=== PATIENT | female | born 1960 | race Caucasian/White ===

== ENCOUNTER 2016-09-11 18:03 | Emergency (ER) | payer SELFPAY ==
[~2016-09-11] VITALS: Ht 160 cm; Wt 70.0 kg
[2016-09-11 18:05] VITALS: BP 140/72; PULSE 82; RESP 20; TEMP 98.3; O2SAT 98
[2016-09-11 18:55] LABS: AUTOMATED NEUTROPHIL # 9.8 TH/MM3 (1.8-7.7); BASOPHIL # 0.1 TH/MM3 (0-0.2); BASOPHIL % 0.5 % (0.0-2.0); EOSINOPHIL # 0.2 TH/MM3 (0-0.4); EOSINOPHIL % 1.6 % (0.0-4.0); HEMATOCRIT 43.4 % (35.0-46.0); HEMO FLAGS DIFF FINAL; LYMPHOCYTE # 3.7 TH/MM3 (1.0-4.8); MEAN CORPUSCULAR HEMOGLOBIN 29.6 PG (27.0-34.0); MEAN CORPUSCULAR HGB CONC 33.7 % (32.0-36.0); MONO % 6.5 % (0.0-8.0); NEUT % 66.4 % (16.0-70.0); PLATELET COUNT 217 TH/MM3 (150-450); RED BLOOD COUNT 4.93 MIL/MM3 (4.00-5.30); RED CELL DISTRIBUTION WIDTH 13.1 % (11.6-17.2); WHITE BLOOD COUNT 14.8 TH/MM3 (4.0-11.0)
[2016-09-11 19:09] LABS: BACTERIA, URINE RARE /hpf; BLOOD, URINE TRACE (NEG); GLUCOSE,URINE NEG (NEG); KETONE, URINE NEG (NEG); NITRITE,URINE NEG (NEG); PH, URINE 6.5 (5.0-8.5); SQUAMOUS EPITHELIAL CELL URINE 3 /hpf (0-5); URINE COLOR YELLOW (YELLW/STRAW)
[2016-09-11 19:10] LABS: COMMENT (UR) CULT NOT INDICATED; CULTURE IF INDICATED CULT NOT INDICATED
[2016-09-11 19:14] LABS: ANION GAP 9 MEQ/L (5-15); AST (GOT) 19 U/L (15-37); BICARBONATE 26.3 MEQ/L (21.0-32.0); BLOOD UREA NITROGEN 10 MG/DL (7-18); CHLORIDE 105 MEQ/L (98-107); GLOMERULAR FILTRATION RATE 60 ML/MIN (>89); POTASSIUM 3.9 MEQ/L (3.5-5.1); SODIUM (NA) 140 MEQ/L (136-145)
[2016-09-11 19:15] LABS: ALT (GPT) 25 U/L (10-53)
[2016-09-11 19:17] LABS: ALKALINE PHOSPHATASE 84 U/L (45-117); TOTAL BILIRUBIN ADULT 0.6 MG/DL (0.2-1.0)
--- NOTE | 2016-09-11 21:59 | PD ---
HPI Chief Complaint: Abdominal Pain Time Seen by Provider: 21:48 Travel History International Travel<30 days: No Contact w/Intl Traveler<30days: No Traveled to known affect area: No History of Present Illness HPI 56-year-old female here for evaluation of abdominal pain and bloating. Patient reports that the symptoms have been going on for the last week, progressively worsening over the last couple of days. History of bilateral tubal ligation. No other abdominal surgeries. Patient reports that she feels as though her abdomen is about 5 inches distended. She also reports having fevers of 101F at home. She was having some loose bowel movements as well as vomiting when the symptoms first started, however states she no longer has vomiting or diarrhea. She has tried taking Pepto-Bismol at home. Pain is mainly located over the left lower quadrant of her abdomen, described as a burning sensation, radiates to her left flank, moderate in intensity, worse with movement and palpation. She denies vaginal bleeding or discharge. No urinary symptoms. PFSH Social History Tobacco Use: Yes Allergies-Medications (Allergen,Severity, Reaction): Coded Allergies: Penicillin (Verified Allergy, Unknown, 09/11/16) Sulfa (Verified Allergy, Unknown, 09/11/16) Reported Meds & Prescriptions Reported Meds & Active Scripts Active Tramadol (Tramadol HCl) 50 Mg Tab 50 Mg PO Q6H PRN Bentyl (Dicyclomine HCl) 10 Mg Cap 10 Mg PO TID PRN Review of Systems Except as stated in HPI: all other systems reviewed are Neg Physical Exam Narrative GENERAL: Well-developed, well-nourished, no apparent distress. SKIN: Focused skin assessment warm/dry. No rash. HEAD: Atraumatic. Normocephalic. EYES: Pupils equal and round. No scleral icterus. No injection or drainage. ENT: Mucous membranes pink and moist. NECK: Trachea midline. No JVD. CARDIOVASCULAR: Regular rate and rhythm. RESPIRATORY: No accessory muscle use. Clear to auscultation. Breath sounds equal bilaterally. GASTROINTESTINAL: Abdomen soft, nondistended. Mild left mid and left lower quadrant tenderness without peritoneal signs. Normal bowel sounds. No hernias. MUSCULOSKELETAL: No obvious deformities. No clubbing. No cyanosis. No edema. NEUROLOGICAL: Awake and alert. No obvious cranial nerve deficits. Motor grossly within normal limits. Normal speech. PSYCHIATRIC: Appropriate mood and affect; insight and judgment normal. Data Data Last Documented VS Vital Signs Date Time Temp Pulse Resp B/P Pulse Ox O2 Delivery O2 Flow Rate FiO2 09/11/16 18:05 98.3 82 20 140/72 98 Room Air Orders Complete Blood Count With Diff (09/11/16 18:14) Comprehensive Metabolic Panel (09/11/16 18:14) Urinalysis - C+S If Indicated (09/11/16 18:14) Lipase (09/11/16 18:14) Ct Abd/Pel W Iv Contrast(Rout) (09/11/16 21:55) Iohexol 350 Inj (Omnipaque 350 Inj) (09/11/16 22:59) Dicyclomine (Bentyl) (09/11/16 23:30) Ketorolac Inj (Toradol Inj) (09/11/16 23:30) Labs Laboratory Tests Test 09/11/16 09/11/16 16:30 18:35 Urine Color YELLOW Urine Turbidity HAZY Urine pH 6.5 Urine Specific [place] 1.014 Urine Protein NEG mg/dL Urine Glucose (UA) NEG mg/dL Urine Ketones NEG mg/dL Urine Occult Blood TRACE Urine Nitrite NEG Urine Bilirubin NEG Urine Urobilinogen LESS THAN 2.0 MG/DL Urine Leukocyte Esterase MOD Urine RBC 2 /hpf Urine WBC 6 /hpf Urine Squamous Epithelial 3 /hpf Cells Urine Bacteria RARE /hpf Microscopic Urinalysis Comment CULT NOT INDICATED White Blood Count 14.8 TH/MM3 Red Blood Count 4.93 MIL/MM3 Hemoglobin 14.6 GM/DL Hematocrit 43.4 % Mean Corpuscular Volume 88.0 FL Mean Corpuscular Hemoglobin 29.6 PG Mean Corpuscular Hemoglobin 33.7 % Concent Red Cell Distribution Width 13.1 % Platelet Count 217 TH/MM3 Mean Platelet Volume 9.5 FL Neutrophils (%) (Auto) 66.4 % Lymphocytes (%) (Auto) 25.0 % Monocytes (%) (Auto) 6.5 % Eosinophils (%) (Auto) 1.6 % Basophils (%) (Auto) 0.5 % Neutrophils # (Auto) 9.8 TH/MM3 Lymphocytes # (Auto) 3.7 TH/MM3 Monocytes # (Auto) 1.0 TH/MM3 Eosinophils # (Auto) 0.2 TH/MM3 Basophils # (Auto) 0.1 TH/MM3 CBC Comment DIFF FINAL Differential Comment Sodium Level 140 MEQ/L Potassium Level 3.9 MEQ/L Chloride Level 105 MEQ/L Carbon Dioxide Level 26.3 MEQ/L Anion Gap 9 MEQ/L Blood Urea Nitrogen 10 MG/DL Creatinine 0.97 MG/DL Estimat Glomerular Filtration 60 ML/MIN Rate Random Glucose 88 MG/DL Calcium Level 9.4 MG/DL Total Bilirubin 0.6 MG/DL Aspartate Amino Transf 19 U/L (AST/SGOT) Alanine Aminotransferase 25 U/L (ALT/SGPT) Alkaline Phosphatase 84 U/L Total Protein 7.5 GM/DL Albumin 4.2 GM/DL Lipase 184 U/L MDM Medical Decision Making Medical Screen Exam Complete: Yes Emergency Medical Condition: Yes Differential Diagnosis Colitis, diverticulitis, appendicitis, IBS, IBD, UTI, cystitis, nephrolithiasis , ureterolithiasis, pyelonephritis Narrative Course Vital signs are within normal limits. CBC shows WBC 14.8, hemoglobin 14.6, hematocrit 43.4, platelets 217, neutrophils 66.4%. CMP is unremarkable. Lipase is 184. UA shows trace occult blood, moderate facet esterase, negative nitrites, not suggestive of UTI. CT abdomen pelvis: CONCLUSION: 1. Benign-appearing right renal cyst measuring 1.6 cm 2. Benign-appearing right ovarian cyst measuring 1.4 cm. 3. Scattered diverticulosis of the sigmoid colon. 4. No acute pathology. Patient was made aware of all findings and provided a copy of her CT abdomen and pelvis report. On reassessment she is sleeping comfortably. There is mild left-sided tenderness. No peritoneal signs. Patient is stable for discharge home with outpatient follow-up. She was instructed to follow-up with a primary care physician this week. I will also give her the name of the communication equipment mechanic director of hotel operations with whom to follow-up with. I will give her prescription for Bentyl and tramadol for her pain. Patient informed on when to return to the emergency department. She verbalizes understanding and agreement with plan. Diagnosis Primary Impression: Abdominal pain Qualified Code: R10.32 - Left lower quadrant pain Additional Impressions: Diverticulosis Qualified Code: K57.90 - Diverticulosis of intestine without bleeding, unspecified intestinal tract location Ovarian cyst Renal cyst Referrals: Kitty Concepcion MD 3 days Senior Systems Developer Primary Care Physician 3 days Additional Instructions: Follow-up with a primary care physician this week. Follow-up with communication equipment mechanic Dr. Concepcion or communication equipment mechanic of your choice this week. Return to the emergency department for worsening symptoms or any other concerns. Scripts Tramadol 50 Mg Tab50 Mg PO Q6H PRN (PAIN) #15 TAB Ref 0 Prov:Petros Harry MD 09/11/16 Dicyclomine (Bentyl)10 Mg Cap10 Mg PO TID PRN (Bowel Management) #20 CAP Ref 0 Prov:Petros Harry MD 09/11/16 Disposition: 01 DISCHARGE HOME Condition: Stable Petros Harry MD Sep 11, 2016 21:59
[2016-09-11] MEDS ORDERED: IOHEXOL 350 MG/ML 10 ML VIAL (for RAD DIAG) IV ONE (22:59)
--- NOTE | 2016-09-11 23:14 | RADRPT ---
EXAM DATE/TIME: 09/11/2016 22:45 [facility] COMPARISON: No previous studies available for comparison. INDICATIONS : Lower abdominal pain, diarrhea and bloating. IV CONTRAST: 75 cc Omnipaque 350 (iohexol) IV ORAL CONTRAST: No oral contrast ingested. RADIATION DOSE: 9.96 CTDIvol (mGy) MEDICAL HISTORY : None SURGICAL HISTORY : Tubal ligation. ENCOUNTER: Initial ACUITY: 1 week PAIN SCALE: 6/10 LOCATION: Bilateral lower quadrant TECHNIQUE: Volumetric scanning of the abdomen and pelvis was performed. Using automated exposure control and ad justment of the mA and/or kV according to patient size, radiation dose was kept as low as reasonably achievable to obtain optimal diagnostic quality images. DICOM format image data is available electro nically for review and comparison. FINDINGS: LOWER LUNGS: The visualized lower lungs are clear. LIVER: Homogeneous density without lesion. There is no dilation of the biliary tree. No calcified gallston es. SPLEEN: Normal size without lesion. PANCREAS: Within normal limits. KIDNEYS: Normal in size and shape. There is no mass, stone or hydronephrosis. There is a 1.6 cm benign cyst m idpole right kidney. Right-sided extrarenal pelvis. The ureters are nondilated. ADRENAL GLANDS: Within normal limits. VASCULAR: There is no aortic aneurysm. BOWEL/MESENTERY: The stomach, small bowel, and colon demonstrate no acute abnormality. There is no free intraperitone al air or fluid. Scattered diverticulosis of the sigmoid colon without inflammatory changes. No infla mmatory changes in the right lower quadrant. ABDOMINAL WALL: Within normal limits. RETROPERITONEUM: There is no lymphadenopathy. BLADDER: No wall thickening or mass. REPRODUCTIVE: There is a small cyst in the right adnexa measuring 1.4 cm. Otherwise the uterus and left adnexa are unremarkable. INGUINAL: There is no lymphadenopathy or hernia. MUSCULOSKELETAL: Within normal limits for patient age. CONCLUSION: 1. Benign-appearing right renal cyst measuring 1.6 cm 2. Benign-appearing right ovarian cyst measuring 1.4 cm. 3. Scattered diverticulosis of the sigmoid colon. 4. No acute pathology. Umair Willett MD on September 11, 2016 at 23:07 Board Certified Radiologist. This report was verified electronically.
[2016-09-11] MEDS ORDERED: KETOROLAC TROMETHAMINE 30 MG/ML (IVP) VIAL IV PUSH ONE (23:30)
[2016-09-11] MEDS ORDERED: DICYCLOMINE HCL 10 MG CAP PO ONE (23:30)
[2016-09-11] MEDS ORDERED: DICY10 PO (23:34)
[2016-09-11] MEDS ORDERED: TRAM50TA PO (23:34)
== END 2016-09-11 23:51 | disposition home or self-care (01) ==
LOC: NEPD 18:03
DX: K57.90 Diverticulosis of intestine, part unspecified, without perforation or abscess without bleeding (principal); N83.201 Unspecified ovarian cyst, right side; N28.1 Cyst of kidney, acquired; Z79.899 Other long term (current) drug therapy; Z88.0 Allergy status to penicillin; Z88.2 Allergy status to sulfonamides
CPT/HCPCS: 74177; 80053; 81001; 83690; 85025; 96374; 99285; J1885; Q9967